=== PATIENT | male | born 1980 | race Caucasian/White ===

== ENCOUNTER 2023-12-17 03:23 | Emergency (ER) | payer BC, OTHER ==
[~2023-12-17] VITALS: Ht 170.2 cm; Wt 67.3 kg
[2023-12-17 04:16] LABS: Basophils # (auto) 0 10 ^3/uL (0-0.2); Basophils % (auto) 0.5 % (0.0-2.0); Eosinophils # (auto) 0.2 10 ^3/uL (0-0.8); Eosinophils % (auto) 2.3 % (0.0-7.0); Hematocrit 45.4 % (41.0-53.0); Lymphocytes # (auto) 3.3 10 ^3/uL (0.4-5.4); Lymphocytes % (auto) 43.9 % (10.0-50.0); Mean Corpuscular Hemoglobin 29.4 pg (28.0-32.0); Mean Corpuscular Hgb Conc. 33.1 g/dL (32.0-36.0); Mean Corpuscular Volume 88.8 fL (80.0-100.0); Monocytes # (auto) 0.5 10 ^3/uL (0-1.3); Neutrophils # (auto) 3.4 10 ^3/uL (1.6-8.6); Neutrophils % (auto) 46.3 % (37.0-80.0); Nucleated Red Blood Cells % 0.1 %; Red Blood Cells 5.11 10^6/uL (4.5-5.90); Red Cell Distribution Width 13.9 % (11.8-14.3); White Blood Cell 7.4 10^3/uL (4.4-10.8)
[2023-12-17 04:28] LABS: Chloride 106 mmol/L (98-107); Potassium 3.8 mmol/L (3.5-5.1); Sodium 141 mmol/L (136-145)
[2023-12-17 04:29] LABS: Anion Gap 9 (5-15); Calcium 9.7 mg/dL (8.7-10.4); Carbon Dioxide 26 mmol/L (20-30)
[2023-12-17 04:34] LABS: BUN/Creatinine Ratio 9.9 (10.0-20.0); Blood Urea Nitrogen 9 mg/dL (9-23); Glucose 96 mg/dL (74-106)
[2023-12-17] MEDS ORDERED: IBU600T PO (07:35)
[2023-12-17] MEDS: KETOROLAC TROMETH 60MG/2ML VIAL IM ONE (07:51)
[2023-12-17 07:52] VITALS: BP 133/90; PULSE 72; RESP 17; TEMP 98.9; O2SAT 99
== END 2023-12-17 07:53 | disposition home or self-care (01) ==
LOC: ER 03:23
DX: N20.0 Calculus of kidney (principal); F12.90 Cannabis use, unspecified, uncomplicated; Z90.49 Acquired absence of other specified parts of digestive tract; Z98.890 Other specified postprocedural states
CPT/HCPCS: 36415; 74176; 80048; 85025

== ENCOUNTER 2023-12-22 14:12 | Inpatient (IN) | payer BC ==
[~2023-12-22] VITALS: Ht 170.2 cm; Wt 65.2 kg
[~2023-12-22 14:12] MED LIST: IBU600T PO
[2023-12-22 15:13] LABS: Basophils # (auto) 0 10 ^3/uL (0-0.2); Basophils % (auto) 0.5 % (0.0-2.0); Eosinophils # (auto) 0 10 ^3/uL (0-0.8); Eosinophils % (auto) 0.7 % (0.0-7.0); Hematocrit 43.8 % (41.0-53.0); Hemoglobin 14.7 g/dL (13.5-17.5); Lymphocytes # (auto) 2.5 10 ^3/uL (0.4-5.4); Lymphocytes % (auto) 42.2 % (10.0-50.0); Mean Corpuscular Hemoglobin 29.4 pg (28.0-32.0); Mean Corpuscular Hgb Conc. 33.5 g/dL (32.0-36.0); Mean Corpuscular Volume 87.7 fL (80.0-100.0); Monocytes # (auto) 0.4 10 ^3/uL (0-1.3); Monocytes % (auto) 6.2 % (0.0-12.0); Neutrophils % (auto) 50.4 % (37.0-80.0); Nucleated Red Blood Cells % 0.2 %; Red Cell Distribution Width 13.6 % (11.8-14.3)
[2023-12-22 15:24] LABS: Chloride 106 mmol/L (98-107); Potassium 3.6 mmol/L (3.5-5.1); Sodium 139 mmol/L (136-145)
[2023-12-22 15:25] LABS: Anion Gap 6 (5-15); Carbon Dioxide 27 mmol/L (20-30)
[2023-12-22 15:26] LABS: Calcium 10.1 mg/dL (8.5-10.1)
[2023-12-22 15:31] LABS: BUN/Creatinine Ratio 7.3 (10.0-20.0); Blood Urea Nitrogen 7 mg/dL (9-23); Glucose 110 mg/dL (74-106)
[2023-12-22 16:33] VITALS: PULSE 74; RESP 14; O2SAT 96
[2023-12-22 17:57] LABS: Urine Bacteria None Seen /hpf (None Seen)
[2023-12-22] MEDS ORDERED: MORPHINE SULFATE INJ 2 MG/ml SYRG IV PRN (18:00)
[2023-12-22] MEDS ORDERED: HYDROcodone-ACET 5/325MG TAB PO PRN (18:00)
[2023-12-22] MEDS ORDERED: ACETAMINOPHEN 325 MG TAB PO PRN (18:00)
[2023-12-22] MEDS ORDERED: ONDANSETRON HCL 4 MG/2 ML VIAL IV PRN (18:00)
[2023-12-22] MEDS: PANTOPRAZOLE 40 MG/10 ML VIAL INJ IV ONE (18:08)
[2023-12-22] MEDS ORDERED: NICOTINE 7MG/24HR TOPICAL PATCH TD SCH (18:09)
[2023-12-22 18:13] LABS: Urine Blood Negative /uL (Negative); Urine Clarity Clear (Clear); Urine Color Light-Yellow (Yellow); Urine Mucus FEW (None Seen); Urine Protein, UAD Negative (Negative); Urine Specific Gravity 1.019 (1.001-1.035); Urine Urobilinogen Normal (Negative); Urine WBC 1 /hpf (0 - 3); Urine pH 5.5 (5.0-9.0)
[2023-12-22] MEDS: SODIUM CHLORIDE 0.9% 1,000 ML IV SCH (18:31)
[2023-12-22 21:00] VITALS: BP 104/61; PULSE 56; RESP 18; TEMP 97.7; O2SAT 100
[2023-12-22 23:56] VITALS: BP 106/61; PULSE 52; PULSE 56; RESP 18; TEMP 97.7; O2SAT 100
[2023-12-23] VITALS (7 sets, daily range): BP systolic 98–114; BP diastolic 59–72; PULSE 50–74; RESP 17–18; TEMP 97.6–98; O2SAT 96–100
[2023-12-23] MEDS ORDERED: TAMS-35 PO (05:33)
[2023-12-23] MEDS ORDERED: PERCOT PO (05:33)
[2023-12-23 07:36] LABS: Alanine Aminotransferase 19 U/L (7-40); Albumin 4.1 g/dL (3.2-4.8); Alkaline Phosphatase 39 U/L (46-116); Anion Gap 3 (5-15); Aspartate Aminotransferase 20 U/L (13-40); BUN/Creatinine Ratio 8.2 (10.0-20.0); Bilirubin, Total 1.1 mg/dL (0.2-1.0); Blood Urea Nitrogen 7 mg/dL (9-23); Calcium 9.1 mg/dL (8.5-10.1); Carbon Dioxide 27 mmol/L (20-30); Chloride 110 mmol/L (98-107); Glucose 82 mg/dL (74-106); Potassium 4.2 mmol/L (3.5-5.1); Sodium 140 mmol/L (136-145); Total Protein 6.3 g/dL (5.7-8.2)
[2023-12-23 07:45] LABS: Basophils # (auto) 0 10 ^3/uL (0-0.2); Basophils % (auto) 0.3 % (0.0-2.0); Eosinophils # (auto) 0.1 10 ^3/uL (0-0.8); Eosinophils % (auto) 2.4 % (0.0-7.0); Hematocrit 40.4 % (41.0-53.0); Hemoglobin 13.7 g/dL (13.5-17.5); Lymphocytes # (auto) 2.2 10 ^3/uL (0.4-5.4); Mean Corpuscular Hgb Conc. 33.8 g/dL (32.0-36.0); Mean Corpuscular Volume 88.6 fL (80.0-100.0); Monocytes # (auto) 0.4 10 ^3/uL (0-1.3); Monocytes % (auto) 8.2 % (0.0-12.0); Neutrophils # (auto) 2.4 10 ^3/uL (1.6-8.6); Neutrophils % (auto) 46.1 % (37.0-80.0); Nucleated Red Blood Cells % 0.1 %; Red Blood Cells 4.56 10^6/uL (4.5-5.90); White Blood Cell 5.1 10^3/uL (4.4-10.8)
[2023-12-23] MEDS: SODIUM CHLORIDE 0.9% 1,000 ML IV SCH (17:15)
[2023-12-23] MEDS: TAMSULOSIN HYDROCHLORIDE 0.4 MG CAP PO SCH (18:00)
[2023-12-23] MEDS: ACETAMINOPHEN 325 MG TAB PO PRN (21:04)
[2023-12-24 05:00] VITALS: BP 105/74; PULSE 52; RESP 18; TEMP 97.7; O2SAT 99
[2023-12-24 07:21] VITALS: TEMP 97.8
[2023-12-24 08:03] VITALS: PULSE 80; RESP 16; O2SAT 96
== END 2023-12-24 08:45 | disposition left against medical advice (07) | DRG 392 ==
LOC: ER 14:12 → WEST WING 17:51 → OVERFLOW 17:51 → WEST WING 23:04
PROVIDERS: ADMIT Internal Medicine; ATTEND Internal Medicine
DX: K58.0 Irritable bowel syndrome with diarrhea (principal); N20.0 Calculus of kidney; F17.200 Nicotine dependence, unspecified, uncomplicated; Z53.29 Procedure and treatment not carried out because of patient's decision for other reasons; F17.210 Nicotine dependence, cigarettes, uncomplicated; K59.00 Constipation, unspecified; Z87.442 Personal history of urinary calculi; Z98.1 Arthrodesis status; Z80.0 Family history of malignant neoplasm of digestive organs; Z79.899 Other long term (current) drug therapy
CPT/HCPCS: 36415; 74176; 80048; 80053; 81001; 85025; 87081; 96374; C9113; G0378

== ENCOUNTER 2024-03-05 11:28 | Day surgery (SDC) | payer BC ==
[2024-03-02 13:55] LABS: Basophils # (auto) 0 10 ^3/uL (0-0.2); Basophils % (auto) 0.6 % (0.0-2.0); Eosinophils # (auto) 0.1 10 ^3/uL (0-0.8); Eosinophils % (auto) 1.5 % (0.0-7.0); Hematocrit 43.6 % (41.0-53.0); Hemoglobin 14.7 g/dL (13.5-17.5); Lymphocytes # (auto) 2.5 10 ^3/uL (0.4-5.4); Lymphocytes % (auto) 41.8 % (10.0-50.0); Mean Corpuscular Hgb Conc. 33.7 g/dL (32.0-36.0); Mean Corpuscular Volume 88.9 fL (80.0-100.0); Monocytes # (auto) 0.4 10 ^3/uL (0-1.3); Monocytes % (auto) 6.5 % (0.0-12.0); Neutrophils % (auto) 49.6 % (37.0-80.0); Platelet Count (auto) 267 10^3/uL (140-450); Red Cell Distribution Width 14.3 % (11.8-14.3)
[2024-03-02 14:11] LABS: Alanine Aminotransferase 33 U/L (7-40); Albumin 4.8 g/dL (3.2-4.8); Alkaline Phosphatase 51 U/L (46-116); Anion Gap 5 (5-15); Aspartate Aminotransferase 28 U/L (13-40); BUN/Creatinine Ratio 14.7 (10.0-20.0); Blood Urea Nitrogen 14 mg/dL (9-23); Calcium 10.2 mg/dL (8.7-10.4); Carbon Dioxide 29 mmol/L (20-30); Chloride 105 mmol/L (98-107); Glucose 88 mg/dL (74-106); Potassium 3.7 mmol/L (3.5-5.1); Sodium 139 mmol/L (136-145)
[2024-03-02 14:12] LABS: Bilirubin, Total 0.9 mg/dL (0.2-1.0); Partial Thromboplastin Time 25.1 SEC (24.5-34.5); Prothrombin Time 10.6 sec (9.3-11.8); Total Protein 7.6 g/dL (5.7-8.2)
[~2024-03-05] VITALS: Ht 170.2 cm; Wt 63.5 kg
[~2024-03-05 11:28] MED LIST changes: +CHOL200064 PO; +MAGN-46 XX; +MULT-1018 OR; +PERCOT PO; +TAMS-35 PO; +THIA100T26 PO; +TIZA4CAP PO; +TURMPOW PO
[2024-03-05] MEDS ORDERED: SODIUM CHLORIDE LOCK 10 ML ONE (13:01)
[2024-03-05 13:06] VITALS: O2SAT 100
[2024-03-05] MEDS: fentaNYL CITRATE 100 MCG/2 ML VL ONE ×2 (13:09→13:18)
[2024-03-05] MEDS: MIDAZOLAM HCL 5 MG/ML-1ML VIAL ONE ×2 (13:09→13:21)
[2024-03-05] MEDS: diphenhdrAMINE HCL 50 MG/1 ML VL ONE (13:15)
[2024-03-05 13:33] VITALS: RESP 18; TEMP 97.6; O2SAT 100
[2024-03-05 13:50] VITALS: BP 106/63; PULSE 65; RESP 16; O2SAT 97
== END 2024-03-05 14:05 | disposition home or self-care (01) ==
LOC: GI 11:28
PROVIDERS: ATTEND Internal Medicine Gastroenterology
DX: Z12.11 Encounter for screening for malignant neoplasm of colon (principal); K57.30 Diverticulosis of large intestine without perforation or abscess without bleeding; K63.89 Other specified diseases of intestine; K64.0 First degree hemorrhoids; K52.89 Other specified noninfective gastroenteritis and colitis; Z98.890 Other specified postprocedural states
CPT/HCPCS: 36415; 45380; 80053; 85025; 85610; 85730; 88305; J1200; J2250; J3010; J7030; 99152

== ENCOUNTER 2024-05-22 08:15 | Day surgery (SDC) | payer BC ==
[2024-05-21 09:46] LABS: Basophils # (auto) 0 10 ^3/uL (0-0.2); Basophils % (auto) 0.3 % (0.0-2.0); Eosinophils # (auto) 0.1 10 ^3/uL (0-0.8); Eosinophils % (auto) 1.6 % (0.0-7.0); Hematocrit 46.9 % (41.0-53.0); Hemoglobin 15.7 g/dL (13.5-17.5); Lymphocytes # (auto) 3.3 10 ^3/uL (0.4-5.4); Lymphocytes % (auto) 48.8 % (10.0-50.0); Mean Corpuscular Hemoglobin 30.3 pg (28.0-32.0); Mean Corpuscular Hgb Conc. 33.4 g/dL (32.0-36.0); Mean Corpuscular Volume 90.6 fL (80.0-100.0); Monocytes # (auto) 0.5 10 ^3/uL (0-1.3); Monocytes % (auto) 7.3 % (0.0-12.0); Neutrophils # (auto) 2.8 10 ^3/uL (1.6-8.6); Nucleated Red Blood Cells % 0.1 %; Platelet Count (auto) 312 10^3/uL (140-450); Red Blood Cells 5.17 10^6/uL (4.5-5.90); Red Cell Distribution Width 14.1 % (11.8-14.3); White Blood Cell 6.8 10^3/uL (4.4-10.8)
[2024-05-21 10:06] LABS: Alanine Aminotransferase 16 U/L (7-40); Albumin 4.8 g/dL (3.2-4.8); Alkaline Phosphatase 50 U/L (46-116); Calcium 10.5 mg/dL (8.7-10.4); Carbon Dioxide 30 mmol/L (20-31); Chloride 105 mmol/L (98-107); Glucose 86 mg/dL (74-106); Potassium 3.6 mmol/L (3.5-5.1)
[2024-05-21 10:07] LABS: Anion Gap 7 (5-15); Aspartate Aminotransferase 19 U/L (13-40); BUN/Creatinine Ratio 10.7 (10.0-20.0); Bilirubin, Total 0.8 mg/dL (0.2-1.0); Blood Urea Nitrogen 9 mg/dL (9-23); Sodium 142 mmol/L (136-145); Total Protein 7.9 g/dL (5.7-8.2)
[2024-05-21 10:09] LABS: INR 1.02 (0.9-1.15); Partial Thromboplastin Time 25.2 SEC (24.5-34.5); Prothrombin Time 10.8 sec (9.3-11.8)
[~2024-05-22] VITALS: Ht 170.2 cm; Wt 68.0 kg
[~2024-05-22 08:15] MED LIST changes: +DICY10CA PO; -TAMS-35 PO; -TIZA4CAP PO
[2024-05-22] MEDS ORDERED: SODIUM CHLORIDE LOCK 10 ML ONE (08:21)
[2024-05-22 09:26] VITALS: PULSE 101; RESP 14; O2SAT 100
[2024-05-22] MEDS: LIDOCAINE VISCOUS 2% 15ML UD ONE (09:31)
[2024-05-22] MEDS: MIDAZOLAM HCL 5 MG/ML-1ML VIAL ONE (09:33)
[2024-05-22] MEDS: fentaNYL CITRATE 100 MCG/2 ML VL ONE (09:33)
[2024-05-22] MEDS: diphenhdrAMINE HCL 50 MG/1 ML VL ONE (09:35)
[2024-05-22 09:56] VITALS: PULSE 73; RESP 12; TEMP 97.9; O2SAT 100
--- NOTE | 2024-05-22 10:24 | DVHOP2 ---
Operative Report DATE OF PROCEDURE: 05/22/24 INDICATIONS FOR THE PROCEDURE: Abdominal pain right upper quadrant nausea heartburn belching PROCEDURE PERFORMED: 1. Esophagogastroduodenoscopy and biopsy POSTOPERATIVE DIAGNOSIS: Small hiatal hernia Mild esophagitis LA classification B Mild gastritis of the antrum INFORMED CONSENT: The risks and benefits and alternatives were explained to the patient and informed consent was obtained. PROCEDURE IN DETAIL: The patient was kept NPO after midnight. In the endoscopy room, he was given IV fentanyl and Versed, and titrated slowly to get him sedated. Olympus gastroscope was passed through the oropharynx into the stomach and the duodenum, and the findings were as follows. Esophagus: 1 cm hiatal hernia with erythematous streaks suggestive of esophagitis no ulcers no strictures seen Gastroesophageal junction was 37 cm from the incisor Biopsies taken Stomach: Fundus: Retroflexed and visualized and normal Body and antrum showed erythematous streaks suggestive of gastritis, biopsies taken to ensure there is no H pylori or other pathology Pylorus normal Duodenum unremarkable biopsies taken to ensure there is no celiac disease or other pathology Endoscopic impression Hiatal hernia Esophagitis LA classification B Biopsies taken Gastritis antrum biopsies taken Suggestions Await the biopsy results Aggressive treatment with PPIs In case symptoms persist may need further evaluation as necessary Thank you for asking me to take part in the care of this pleasant patient Thank you Dr. Murphy Copy to ENDOSCOPIC IMPRESSION: SUGGESTIONS: With warm regards, ANAYA MURPHY MD May 22, 2024 10:24
[2024-05-22] MEDS ORDERED: ONDANSETRON HCL 4 MG/2 ML VIAL ONE (10:33)
[2024-05-22] MEDS: ONDANSETRON HCL 4 MG/2 ML VIAL IV ONE (10:35)
[2024-05-22 10:41] VITALS: BP 121/83; PULSE 95; RESP 12; O2SAT 99
== END 2024-05-22 10:51 | disposition home or self-care (01) ==
LOC: GI 08:15
PROVIDERS: ATTEND Internal Medicine Gastroenterology
DX: R10.11 Right upper quadrant pain (principal); K29.50 Unspecified chronic gastritis without bleeding; K44.9 Diaphragmatic hernia without obstruction or gangrene; K20.80 Other esophagitis without bleeding; B96.81 Helicobacter pylori [H. pylori] as the cause of diseases classified elsewhere; Z90.49 Acquired absence of other specified parts of digestive tract; Z98.890 Other specified postprocedural states
CPT/HCPCS: 36415; 43239; 80053; 85025; 85610; 85730; 88305; 88312; 88342; J1200; J2250; J2405; J3010; J7030; 99152

== ENCOUNTER 2025-01-23 11:36 | Outpatient (CLI) | payer BC ==
[2025-01-23 12:23] LABS: Hematocrit 49.6 % (41.0-53.0); Hemoglobin 16.5 g/dL (13.5-17.5); Mean Corpuscular Hemoglobin 29.7 pg (28.0-32.0); Mean Corpuscular Volume 89.2 fL (80.0-100.0); Nucleated Red Blood Cells % 0.1 %
[2025-01-23 12:42] LABS: Iron 107.0 ug/dL (65-175)
[2025-01-23 12:44] LABS: Prostate Specific Antigen 0.97 ng/mL (0.0-4.0)
[2025-01-23 12:45] LABS: Total Iron Binding Capacity 383.0 ug/dL (250-425)
[2025-01-23 12:47] LABS: Free T4 (Free Thyroxine) 1.03 ng/dL (0.89-1.76)
[2025-01-23 12:50] LABS: Alanine Aminotransferase 21 U/L (7-40); Alkaline Phosphatase 60 U/L (46-116); Amylase 87 U/L (30-118); Anion Gap 10 (5-15); BUN/Creatinine Ratio 14.7 (10.0-20.0); Blood Urea Nitrogen 15 mg/dL (9-23); Carbon Dioxide 27 mmol/L (20-31); Chloride 102 mmol/L (98-107); Glucose 89 mg/dL (74-106); Potassium 3.6 mmol/L (3.5-5.1); Sodium 139 mmol/L (136-145); Total Protein 8.1 g/dL (5.7-8.2); Triglycerides 69 mg/dL (< 150)
[2025-01-23 12:51] LABS: Albumin 5.2 g/dL (3.2-4.8); Bilirubin, Total 1.0 mg/dL (0.2-1.0); Calcium 10.4 mg/dL (8.7-10.4); Cholesterol 150 mg/dL (< 200); HDL Cholesterol 66 mg/dL (40-59)
[2025-01-23 13:03] LABS: Lipase 44 U/L (12-53)
[2025-01-24 13:16] LABS: Urine Amorphous Crystal FEW /hpf (None Seen); Urine Budding Yeast OCCASIONAL /hpf (None Seen); Urine Protein, UAD Negative (Negative)
== END 2025-01-23 17:00 | disposition home or self-care (01) ==
LOC: LAB 11:36
PROVIDERS: ATTEND Family Medicine
DX: R73.03 Prediabetes (principal); R03.0 Elevated blood-pressure reading, without diagnosis of hypertension; Z00.00 Encounter for general adult medical examination without abnormal findings; Z86.19 Personal history of other infectious and parasitic diseases
CPT/HCPCS: 36415; 80053; 80061; 81001; 82150; 82607; 82746; 83036; 83540; 83550; 83690; 84153; 84439; 84443; 85025